=== PATIENT | female | born 2000 ===

== ENCOUNTER 2022-08-15 22:00 | Emergency (ER) | payer OTHER ==
[~2022-08-15] VITALS: Ht 154.9 cm; Wt 70.5 kg
[2022-08-15 22:07] VITALS: BP 103/66
[2022-08-15 22:38] VITALS: PULSE 85
== END 2022-08-15 22:38 | disposition home or self-care (01) ==
LOC: COL.ER 22:00
DX: L50.9 Urticaria, unspecified (principal)